=== PATIENT | male | born 1965 | race Caucasian/White ===

== ENCOUNTER 2020-12-27 15:03 | Emergency (ER) | payer OTHER, SELFPAY ==
[2020-12-27 15:03] VITALS: BP 130/115; PULSE 96; RESP 16; TEMP 36.8; O2SAT 99; BMI 51.5
--- NOTE | 2020-12-27 15:16 | EKG12_ITS ---
Test Reason : Blood Pressure : / mmHG Vent. Rate : 084 BPM Atrial Rate : 084 BPM P-R Int : 162 ms QRS Dur : 100 ms QT Int : 386 ms P-R-T Axes : 004 -09 047 degrees QTc Int : 456 ms Normal sinus rhythm Normal ECG Confirmed by MARIO DIANA, VICKI ([id number]), news copy editor SHANE MARTINEZ ([id number]) on 12/29/2020 10:31:15 AM Referred By: RU Confirmed By:VICKI MARTIN MD
--- NOTE | 2020-12-27 15:18 | EDS_ITS ---
HPI History of Present Illness Chief Complaint: General Illness Detail of Chief Complaint: Multiple complaints Informant: patient Narrative Narrative: Patient states that about a month ago started having a white film on his tongue. Patient states that he was using nystatin swish and swallow and then [facility] and symptoms have not improved. Patient states that everything tastes bad and now he has a brownish film on his tongue. Patient also states that he is got some fullness that he is noticed at the base of his neck. He is able to swallow food without difficulty and has had normal appetite. He said no vomiting. Yesterday he had some tightness in his upper abdomen but now that is resolved. He is having normal bowel movements. He denies significant chest pain or shortness of breath. He denies recent illness. He has not had his Covid vaccine. He denies exposures to Covid. Prior similar symptoms: No PFSH PFSH Medical History no medical history Home Medications buspirone 10 mg PO DAILY 12/27/20 [History Last Taken Unknown] lithium carbonate 900 mg PO DAILY 12/27/20 [History Last Taken Unknown] Allergy/AdvReac Type Severity Reaction Status Date / Time No Known Allergies Allergy Verified 12/27/20 15:06 Surgical History (Updated 12/27/20 @ 15:14 by Zahida Childress) History of resection of rib Social History Smoking Status: Current every day smoker tobacco type: cigarettes ROS ROS ED Constitutional Constitutional ED: Reports systems reviewed and no addt'l complaints, except as documented; Denies body ache(s), change in weight or chills Eyes Eyes: Denies acute decrease in peripheral vision, change in vision, double vision or loss of vision ENT ENT ED: Reports none and other Details: White film on tongue and brown film on tongue, dysgeusia ; Denies ear pain, lip swelling, loss taste/smell, neck pain, otalgia or sore throat Cardiovascular Cardiovascular: Reports none; Denies abdominal pain, chest pain with activity, leg edema, lightheadedness, palpitations, rapid heart rate or syncope Respiratory/Chest Respiratory/Chest: Reports none; Denies change in mental status, dry cough, dyspnea, hemoptysis, shortness of breath at rest or shortness of breath with exertion Gastrointestinal Gastrointestinal: Reports none; Denies abdominal pain, change in stool character, diarrhea, hematemesis, hematochezia, melena, rectal bleeding or vomi ting Genitourinary Genitourinary ED: Reports none; Denies abdominal discomfort, anuria, dysuria, genital pain or polyuria Musculoskeletal Musculoskeletal: Reports none; Denies arthralgias, back pain, difficulty walking, extremity pain, muscle weakness or myalgias Integumentary Reports none; Denies abscess or rash Neurologic Neurologic: Reports none; Denies abnormal gait, confusion, focal weakness, frequent falls, headache(s), loss of vision, numbness, paresthesias, radicular pain, vertigo or weakness Psychiatric Psychiatric: Reports systems reviewed and no addt'l complaints, except as documented and none; Denies behavioral changes, confusion, difficulty concentrating, hallucinations, suicidal ideation, tactile hallucinations or v isual hallucinations Endocrine Endocrinology: Denies none, cold intolerance, excessive sweating, fatigue or heat intolerance Hematologic/Lymphatic Hematologic/Lymphatic: Reports none; Denies anemia, easy bleeding or easy bruising Allergic/Immunologic Allergic/Immunologic ED: Denies as per HPI, none, lip swelling, mouth swelling, throat swelling, tongue swelling or hives EXAM Physical Exam Const Vital Signs: 12/27/20 15:03 12/27/20 15:13 Temperature 98.2 F Temperature Source Temporal Pulse Rate 96 Respiratory Rate 16 Respiratory Effort Normal Respiratory Pattern Normal Blood Pressure 130/115 H Blood Pressure Mean 120 Pulse Ox 99 Oxygen Delivery Method Room Air Positive well nourished and well developed General Appearance ED: well developed and NAD HEENT Reports TM's clear and moist mucous membranes HEENT Narrative: Patient does have a brownish discoloration coating the tongue and papilla. normocephalic and atraumatic; Negative for trauma or tenderness Tympanic Membrane ED: Yes TM's clear Eyes PERRL and EOMs intact bilaterally General Eye ED: Negative for pale conjunctiva or scleral icterus Neck no lymphadenopathy, supple and no JVD General: Negative for tenderness Chest Wall inspection of chest normal and palpation of chest normal Chest: Negative for tenderness Resp normal respiratory effort and clear to auscultation bilaterally Effort and Inspection: Negative for respiratory distress or pain with movement Auscultation: Negative for rhonchi, wheezes or diminished lung sounds Cardio regular rate, regular rhythm, S1 normal heart sound, S2 normal heart sound and no murmurs Peripheral Pulses: pulses 2+ throughout GI normal to inspection, nondistended, normoactive bowel sounds, soft to palpation, non-tender, non-distended and no masses Back/Spine no CVA tenderness and no thoracic nor lumbar tenderness Extremity normal to inspection General Extremety ED: Negative for edema General Extremity: Negative for edema Neuro oriented x3, CN's II-XII intact bilaterally, no sensory deficits noted and gait normal Sensorium / Orientation: awake, alert, oriented to person, oriented to place and oriented to time Motor Exam: strength 5/5 throughout and strength abnormal Psych mental status grossly normal Skin no rashes or lesions noted and no wounds MDM MDM MDM Narrative Medical decision making narrative: Lab work-up was unremarkable. Etiology of feliciano antoine discoloration and dysgeusia may be related to smoking. He is advised to discontinue smoking. He is already been on Diflucan. I will refer patient to ENT for follow-up. Lab Data Attestation: I reviewed the patient's lab results. Labs: Laboratory Results - last 24 hr 12/27/20 12/27/20 12/27/20 15:27 15:27 15:27 WBC 9.0 RBC 5.03 Hgb 15.2 Hct 47.1 MCV 93.6 MCH 30.2 MCHC 32.3 RDW Std Deviation 41.6 RDW Coeff of Beth 12.0 Plt Count 335 MPV 8.8 Immature Gran % (Auto) 0.400 Neut % (Auto) 64.8 Lymph % (Auto) 22.0 [place] % (Auto) 8.0 Eos % (Auto) 3.7 Baso % (Auto) 1.1 H Absolute Neuts (auto) 5.8 Absolute Lymphs (auto) 1.98 Nucleated RBC % 0 Sodium 135 L Potassium 4.2 Chloride 104 Carbon Dioxide 28.0 Anion Gap 3 L BUN 13 Creatinine 1.08 Estim Creat Clear Calc 73.10 Est GFR (MDRD) Af Amer 92 Est GFR (MDRD) Non-Af 76 BUN/Creatinine Ratio 12.0 Glucose 86 Calcium 9.3 Troponin I High Sens 5 [place] 1.00 Radiography Diagnostic Testing: Clinical Impression(s) from Imaging Studies Chest X-Ray 12/27/20 15:27 IMPRESSION: Normal x-ray examination of the chest. Electronically Signed: Lewis Ferraro MD at 15:55 EDT Tel , Service support , One view chest x-ray obtained interpreted by myself as no acute disease process. Radiology in agreement. EKG Initial EKG: Attestation: I personally reviewed and interpreted this EKG as follows: Comments: Sinus rhythm with a ventricular rate of 84 bpm with no acute ST segment changes Discharge Plan Triage Chief Complaint: General Illness ED Provider: Sanjiv Kumar Dx/Rx/DC Orders Clinical Impression: Dysgeusia, Brown hairy tongue Instructions: Smell and Taste Disorders Prescriptions: No Action lithium carbonate 300 mg Capsule 900 mg PO DAILY RF: 0 buspirone 10 mg Tablet 10 mg PO DAILY RF: 0 Primary Care Provider: [facility] Referrals: Jorge Hung MD [STAFF PHYSICIAN] - 3-5 Days [facility] [Primary Care Provider] - Disposition Disposition: Home, Self Care
--- NOTE | 2020-12-27 15:27 | RAD_ITS ---
STUDY: X-RAY CHEST REASON FOR EXAM: Male, 55 years old. Chest pain TECHNIQUE: Single frontal view of the chest. COMPARISON: None. FINDINGS: The lungs are clear and expanded. There is no demonstrated pleural abnormality. Normal size heart. Normal mediastinum and kala. Normal visualized pulmonary arteries. Normal visualized aortic arch and descending thoracic aorta. Normal visualized thoracic spine. Normal visualized ribs, clavicles, and shoulders. There is no demonstrated abnormality of the visualized soft tissue structures of the upper abdomen. RAD/Chest 1 View (Portable) IMPRESSION: Normal x-ray examination of the chest. Electronically Signed: Lewis Ferraro MD at 15:55 EDT Tel , Service support ,
[2020-12-27 15:36] LABS: Absolute Lymphocyte Count 1.98 X10^3/uL (0.83-4.51); Absolute Neutrophil Count 5.8 X10^3/uL (2.0-7.7); Basophil% 1.1 % (0-1); Eosinophil# 0.33 X10^3/uL; Eosinophils% 3.7 % (0-5); Hematocrit 47.1 % (40-54); Hemoglobin 15.2 g/dL (13.0-16.5); Lymphocyte # 1.98 X10^3/ul (0.83-4.51); Mean Corp Hgb Conc 32.3 g/dL (32-36); Mean Corpuscular Hgb 30.2 pg (27.0-32.0); Mean Corpuscular Volume 93.6 fL (80-94); Mean Platelet Vol. 8.8 fl (6.2-12.0); Monocyte# 0.72 X10^3/uL; NRBC Flagged by Analyzer 0 % (0-5); Neutrophil # 5.84 X10^3/uL (2.7-7.7); Neutrophil % 64.8 % (47-70); Platelet Count 335 K/mm3 (150-450); RBC Distribution Width SD 41.6 fl (35.1-43.9); Red Blood Count 5.03 M/mm3 (4.6-6.2)
[2020-12-27 15:53] LABS: Anion Gap 3 (5-15); BUN 13 mg/dL (7-18); Calcium,Total 9.3 mg/dL (8.5-10.1); Chloride 104 mmol/L (98-107); Creatinine, Serum 1.08 mg/dL (0.70-1.30); EST Glomerular Filtration Rate 76 mL/min (>60); Est Glom Filt Rate - Afr Amer 92 mL/min (>60); Glucose 86 mg/dL (74-106); Potassium 4.2 mmol/L (3.5-5.1); Sodium Level 135 mmol/L (136-145); Troponin-I HS 5 pg/mL (3.0-78.0)
[2020-12-27 17:02] VITALS: BP 168/93; PULSE 87; RESP 18; O2SAT 97
== END 2020-12-27 17:03 | disposition home or self-care (01) ==
PROVIDERS: Emergency Provider Emergency Medicine
DX: R43.2 Parageusia (principal); F17.210 Nicotine dependence, cigarettes, uncomplicated
CPT/HCPCS: 71045; 80048; 80178; 84484; 85025; 87426; 93005; 99283; A4216

== ENCOUNTER 2022-11-22 03:31 | Emergency (ER) | payer MEDICAID, SELFPAY ==
[2022-11-22 03:32] VITALS: BP 162/96; PULSE 89; RESP 18; TEMP 36.3; O2SAT 100; BMI 43.1
[2022-11-22 03:34] VITALS: BP 162/96; PULSE 89; RESP 18; TEMP 36.3; O2SAT 100
--- NOTE | 2022-11-22 03:35 | EX.ED.DYSGE1 ---
HPI History of Present Illness Chief Complaint: Lower Extremity Injury PFSH PFS Home Medications buspirone 10 mg tablet 10 mg PO BID 12/27/20 [History Last Taken Unknown] lithium carbonate 300 mg capsule 1,200 mg PO DAILY 12/27/20 [History Last Taken Unknown] omeprazole magnesium 20 mg tablet,delayed release (Prilosec OTC) 20 mg PO DAILY 11/22/22 [History Last Taken Unknown] Allergy/AdvReac Type Severity Reaction Status Date / Time No Known Allergies Allergy Verified 11/22/22 03:32 Surgical History (Updated 12/27/20 @ 15:14 by Zahida Childress) History of resection of rib Social History Smoking Status: Current every day smoker tobacco type: cigarettes EXAM Physical Exam Const Vital Signs: 11/22/22 03:32 11/22/22 03:34 Temperature 97.3 F L 97.3 F L Temperature Source Temporal Temporal Pulse Rate 89 89 Respiratory Rate 18 18 Blood Pressure 162/96 H 162/96 H Blood Pressure Mean 118 118 Pulse Ox 100 100 Oxygen Delivery Method Room Air Room Air MDM MDM MDM Narrative Medical decision making narrative: HISTORY OF PRESENT ILLNESS: 57-year-old male here with thigh pain. He states he has no injuries. States he has thigh pain that feels like it is deep in the bone. He further states pain started yesterday. He states he may have tweaked his right thigh while walking yesterday. Denies any trauma. Denies any MVC's or falls from great heights. Patient denies active cancer, being bedridden for greater than 3 days, denies unilateral leg swelling, denies any varicose veins, denies any calf tenderness, denies tenderness along deep venous system. Denies major surgery within 12 weeks, recent paralysis, previous DVT. REVIEW OF SYSTEMS: Pertinent positives: Thigh pain Pertinent negatives: Numbness, weakness, coolness to touch, fever, unilateral leg swelling, chest pain or shortness of breath PHYSICAL EXAM: Nursing triage notes reviewed, Vital signs reviewed Constitutional: please see mdm Lungs: Clear to auscultation, No wheezing or rales. No increased work of breathing, no conversational dyspnea, no accessory muscle use, no nasal flaring. No respiratory distress noted Heart: Regular rate and rhythm, No murmurs, No rubs and No gallops, 2+ distal pulses (radial, femoral, posterior tibial) in all extremities Abdomen: Soft, there is no tenderness, rigidity, rebound or guarding, no obvious peritoneal signs, no palpable pulsatile abdominal masses, no auscultated abdominal bruit Extremities: No edema no signs of trauma, compartments are soft, intact ankle flexion extension, intact knee flexion sensory, intact hip flexion extension internal/external rotation Neuro: Intact sensation L1-S1 dermatomal distributions. Intact 5/5 strength in hip flexion (T12-L3). Knee extension (L2-L4). Ankle dorsiflexion (L4-L5). Ankle plantar flexion (S1). Great toe extension (L5). 2+ patellar and Achilles DTRs. Skin: No rash or lesions noted MEDICAL DECISION MAKING: Chief Complaint: Thigh pain External records reviewed: Advanced imaging of the involved extremity Factors affecting care: Bipolar disorder Social determinants of health: Current smoker, history mental health MDM Narrative: Was hemodynamically stable, afebrile, nontoxic-appearing I considered the following differential diagnosis: Muscle strain, fracture dislocation, arterial occlusion, DVT, compartment syndrome, necrotizing fasciitis There is no history of physical exam findings to suggest DVT, arterial occlusion, apartment syndrome. There are no signs of infection on exam. No crepitus or bullae or pain on proportion to exam there is no significant trauma to suggest femoral bone fracture. There is no signs of trauma on exam. Patient likely suffered a quadriceps muscle strain. Encouraged Tylenol, ibuprofen and close PCP follow-up. The patient and/or family, caregivers express understanding. The patient and/or family, caregivers agrees with the plan. Shared decision making: I will have a discussion with the patient and or visitors regarding risk/benefits of further testing or admission. They will be made aware of of the risk/benefits inherent in this decision they will be given the opportunity to voice understanding. Total critical care time today provided was at least 0 minutes. This excludes separately billable procedures. Critical care time (if documented) is secondary to the patient having high probability of clinically significant/life threatening deterioration in the patient's condition which required my urgent intervention. Impression: 1. Right quadriceps muscle strain Dispo: Discharge Discharge Plan Triage Chief Complaint: Lower Extremity Injury ED Provider: Zbigniew García Dx/Rx/DC Orders Instructions: Quad Stretch Prescriptions: No Action lithium carbonate 300 mg Capsule 1,200 mg PO DAILY buspirone 10 mg Tablet 10 mg PO BID omeprazole magnesium [Prilosec OTC] 20 mg tablet,delayed release (DR/EC) 20 mg PO DAILY Primary Care Provider: [facility] Referrals[place] [facility] [Primary [facility] [place]] - Activity Restrictions/Additional Instructions: Thank you for trusting us with your care today! Please take Tylenol (2 pills, 650 mg), ibuprofen (2 pills, 400 mg) every 6 hours as needed for pain and fever control. Please return to the emergency department if your symptoms change or worsen. Typically you develop chest pain or shortness of breath. If develop worsening pain, if your limb turns blue or is cool to touch. If you lose ability to move your involved extremity or you lose sensation in your involved extremity Please follow with your primary care physician for further outpatient evaluation and management. Disposition Disposition: Home, Self Care
== END 2022-11-22 04:10 | disposition home or self-care (01) ==
LOC: ED 04:10
PROVIDERS: Emergency Provider Emergency Medicine; Visit Provider Emergency Medicine
DX: S76.111A Strain of right quadriceps muscle, fascia and tendon, initial encounter (principal); F31.9 Bipolar disorder, unspecified; F17.210 Nicotine dependence, cigarettes, uncomplicated; X58.XXXA Exposure to other specified factors, initial encounter
CPT/HCPCS: 99282

== ENCOUNTER 2023-01-17 08:20 | Emergency (ER) | payer OTHER, SELFPAY ==
[2023-01-17 08:21] VITALS: BP 181/129; PULSE 120; RESP 16; TEMP 36.2; O2SAT 100; BMI 41.7
--- NOTE | 2023-01-17 08:34 | EX.ED.VIS.UR ---
HPI HPI - URI History of Present Illness Chief Complaint: Ear Problem Informant: patient Onset/Context/Timing Onset: Days (5) Context: Gradual Onset Timing: Continuous Quality: Pressure Location: Right ear Worsened by: - (Nothing) Relieved by: - (Nothing) Associated Symptoms Associated Symptoms: Negative for Nasal Congestion, Headache, Sinus Pressure, Myalgias, Nausea, Vomiting, Diarrhea, Shortness of Breath, Chest Pain, Nonproductive cough, Hemoptysis or Productive Cough Narrative Narrative: Patient presents with right ear pain that has been getting worse over the past 5 days. Patient describes it as a pressure. Patient states that it is over the right ear and radiates into the right side of his neck. Patient states nothing makes it worse and nothing makes it better. Patient denies any sinus pressure or headaches. Patient denies any nausea or vomiting. Patient does admit to some tinnitus. Patient denies any fevers or chills. Patient admits to some decreased hearing from the right ear. ROS ROS ED Constitutional Constitutional ED: Denies chills or fever(s) Eyes Eyes: Reports blurry vision; Denies change in vision ENT ENT ED: Reports ear pain right; Denies rhinorrhea or sore throat Cardiovascular Cardiovascular: Denies chest pain or palpitations Respiratory/Chest Respiratory/Chest: Denies cough or dyspnea Gastrointestinal Gastrointestinal: Denies nausea or vomiting Genitourinary Genitourinary ED: Reports other Details: Dark urine ; Denies dysuria or hematuria Musculoskeletal Musculoskeletal: Denies back pain or neck pain Integumentary Denies abscess or rash Neurologic Neurologic: Denies headache(s) or weakness Allergic/Immunologic Allergic/Immunologic ED: Denies mouth swelling or urticaria [facility] Medical History (Updated 01/17/23 @ 10:[address] Jorge Barillas, ) Bipolar disorder GERD (gastroesophageal reflux disease) Home Medications buspirone 10 mg tablet 10 mg PO BID 12/27/20 [History Last Taken Unknown] lithium carbonate 300 mg capsule 1,200 mg PO DAILY 12/27/20 [History Last Taken Unknown] omeprazole magnesium 20 mg tablet,delayed release (Prilosec OTC) 20 mg PO DAILY 11/22/22 [History Last Taken Unknown] amoxicillin 875 mg-potassium clavulanate 125 mg tablet 875 mg (0.875 x 875-125 mg) PO Q12H #20 TABLETS 01/17/23 [Rx Last Taken Unknown] Allergy/AdvReac Type Severity Reaction Status Date / Time No Known Allergies Allergy Verified 01/17/23 08:22 Surgical History History of resection of rib Social History (Updated 01/17/23 @ 08:[address] Jorge Barillas DO) Smoking Status: Current every day smoker tobacco type: cigarettes substance use type: marijuana EXAM Physical Exam Const Vital Signs: 01/17/23 08:21 01/17/23 10:37 Temperature 97.2 F L 97.3 F L Temperature Source Temporal Pulse Rate 120 H 64 Respiratory Rate 16 14 Blood Pressure 181/129 H 142/76 H Blood Pressure Mean 146 98 Pulse Ox 100 99 Oxygen Delivery Method Room Air Positive well nourished, well developed and obese General Appearance ED: well developed and NAD Nutritional Appearance: obese HEENT Reports moist mucous membranes HEENT Narrative: There is edema and mild tenderness over the right parotid gland area. There is no fluctuance. There is no erythema. Tympanic membranes are clear bilateral. External auditory canals are clear. There is no tenderness over the mastoid process. normocephalic and atraumatic Neck no lymphadenopathy, supple, no meningeal signs and no JVD General: Negative for anterior neck swelling or lymphadenopathy Resp normal respiratory effort and clear to auscultation bilaterally Cardio Rate: regular rate Rhythm: regular rhythm GI non-tender and non-distended Palpation: soft Neuro oriented x3, CN's II-XII intact bilaterally and no sensory deficits noted Sensorium / Orientation: alert Motor Exam: strength 5/5 throughout Psych mental status grossly normal MDM MDM MDM Narrative Medical decision making narrative: Differential diagnosis includes parotid gland abscess, mass, infection, and stone. CBC will be obtained to assess for leukocytosis and anemia. Basic metabolic profile will be obtained to assess for electrolyte abnormality and renal function. Urinalysis will be obtained to assess for urinary tract infection and hematuria. CT scan of the soft tissue neck will be obtained to assess for parotid gland mass versus abscess. Lab Data Attestation: I reviewed the patient's lab results. Lab results narrative: CBC was reviewed. There is a mild leukocytosis of 12.7. Hemoglobin was 18.1 and hematocrit was 57.4. Platelets were normal. Basic metabolic profile was reviewed. BUN was 22 and creatinine was 1.37. Urinalysis was reviewed. Specific gravity is 1.030. There is urine ketones of 50. Occult blood was 10. There are no red blood cells seen. There is no evidence of urinary tract infection. Labs: Laboratory Results - last 24 hr 01/17/23 09:15 WBC 12.7 H RBC 6.05 Hgb 18.1 H* Hct 57.4 H MCV 94.9 H MCH 29.9 MCHC 31.5 L RDW Std Deviation 45.4 H RDW Coeff of Beth 12.8 Plt Count 337 MPV 9.3 Immature Gran % (Auto) 0.700 Neut % (Auto) 75.7 H Lymph % (Auto) 14.2 L [place] % (Auto) 6.5 Eos % (Auto) 2.0 Baso % (Auto) 0.9 Absolute Neuts (auto) 9.6 H Absolute Lymphs (auto) 1.81 Nucleated RBC % 0 Differential Comment SCANNED Diff Path Review Reviewed Sodium 132 L Potassium 4.0 Chloride 99 Carbon Dioxide 26.0 Anion Gap 7 BUN 22 H Creatinine 1.37 H Estim Creat Clear Calc 56.29 Est GFR (MDRD) Af Amer 69 Est GFR (MDRD) Non-Af 57 L BUN/Creatinine Ratio 16.1 Glucose 90 Calcium 10.1 Urine Color Yellow Urine Clarity Clear Urine pH 5.0 Ur Specific [place] 1.030 Urine Protein 30 H Urine Glucose (UA) Normal Urine Ketones 50 H Urine Occult Blood 10 H Urine Nitrite Negative Urine Bilirubin 1 H Urine Urobilinogen 1 H Ur Leukocyte Esterase 25 H Urine RBC 0 SEEN Urine WBC 0-5 SEEN Ur Squamous Epith Cells 0 SEEN Urine Bacteria 0 SEEN Urine Mucus 0 SEEN Radiography Diagnostic Testing: Clinical Impression(s) from Imaging Studies Soft Tissue Neck CT 01/17/23 09:25 IMPRESSION: 1. Enlarged salivary glands without evidence of edema, mass or abscess. 2. Chronic right maxillary sinusitis. 3. 12 mm left thyroid nodule. Follow-up thyroid ultrasound recommended. Electronically Signed: Wei Hart MD at 9:51 EST , CT scan of the soft tissue neck was obtained. There are enlarged parotid glands but there is no mass or abscess. There is no salivary duct stone. This was interpreted by the radiologist and was also independently reviewed by myself. Treatment and Re-Evaluation Narrative: Patient was given IV fluids. Patient was advised of his findings. Patient was given a dose of Augmentin here. Patient was given a prescription for Augmentin. Patient was instructed to follow-up with ENT in 5 to 7 days. Patient was instructed return if worse in any way. Patient understood and was agreeable with the plan. All questions were answered. Discharge Plan Triage Chief Complaint: Ear Problem ED Provider: Jorge Barillas Dx/Rx/DC Orders Clinical Impression: Sialoadenitis, Morbid obesity with BMI of 40.0-44.9, adult Instructions: ED Salivary Gland Swelling ... Prescriptions: New amoxicillin-pot clavulanate [amoxicillin-pot clavulanate] 875-125 mg tablet 875 mg PO Q12H Qty: 20 0RF No Action lithium carbonate 300 mg Capsule 1,200 mg PO DAILY buspirone 10 mg Tablet 10 mg PO BID omeprazole magnesium [Prilosec OTC] 20 mg tablet,delayed release (DR/EC) 20 mg PO DAILY Primary Care Provider: [facility] Referrals: Prabhjot Sánchez MD [Med Staff - Active Staff] - 5-7 Days [facility] [Primary Care Provider] - 5-7 Days Disposition Disposition: Home, Self Care Discharge Date/Time: 01/17/23 10:38
[2023-01-17 09:24] LABS: Bacteria 0 SEEN /hpf (None Seen); Mucous, Urine 0 SEEN /hpf (<or=2+); Red Blood Cells-Urine 0 SEEN /hpf (0-5); Squamous Epithelial Cells - UA 0 SEEN /hpf (0-5)
--- NOTE | 2023-01-17 09:25 | CT_ITS ---
EXAM: CT NECK WITHOUT AND WITH INTRAVENOUS CONTRAST CLINICAL INDICATION: Parotid gland swelling -- Rule out abscess versus mass versus stone TECHNIQUE: Helically acquired images were obtained of the neck without and with intravenous contrast. This CT exam was performed using one or more of the following dose reduction techniques: automated exposure control, adjustment of the mA and/or kV according to patient size, and/or use of iterative reconstruction technique. CONTRAST: IV 75mL [id number] COMPARISON: No relevant prior studies available. FINDINGS: NASOPHARYNX: Normal. SUPRAHYOID NECK: Normal. Oropharynx, oral cavity, parapharyngeal space and retropharyngeal space are unremarkable. INFRAHYOID NECK: Normal. The larynx, hypopharynx and supraglottis are unremarkable. SUBMANDIBULAR/PAROTID GLANDS: Both parotid and submandibular glands appear prominent in size without discrete edema, mass or abscess. THYROID: Left thyroid lobe is mildly enlarged. Several small left thyroid nodules noted largest one measuring 12 mm. SINUSES: Opacified right maxillary sinus consistent with chronic sinusitis. BONES/JOINTS: There is been surgical resection of the anterior portion of the left first rib. SOFT TISSUES: No evidence of salivary duct stone. VASCULATURE: No acute findings. LYMPH NODES: Normal. No lymphadenopathy. LUNG APICES: Unremarkable as visualized. CT/Soft Tissue Neck W/WO Contrast IMPRESSION: 1. Enlarged salivary glands without evidence of edema, mass or abscess. 2. Chronic right maxillary sinusitis. 3. 12 mm left thyroid nodule. Follow-up thyroid ultrasound recommended. Electronically Signed: Wei Hart MD at 9:51 EST ,
[2023-01-17 09:26] LABS: Absolute Lymphocyte Count 1.81 X10^3/uL (0.83-4.51); Absolute Neutrophil Count 9.6 X10^3/uL (2.0-7.7); Basophil# 0.12 X10^3/uL; Basophil% 0.9 % (0-1); Eosinophil# 0.26 X10^3/uL; Lymphocyte # 1.81 X10^3/ul (0.83-4.51); Lymphocyte % 14.2 % (19-41); Mean Corp Hgb Conc 31.5 g/dL (32-36); Mean Corpuscular Hgb 29.9 pg (27.0-32.0); Mean Corpuscular Volume 94.9 fL (80-94); Mean Platelet Vol. 9.3 fl (6.2-12.0); Monocyte# 0.83 X10^3/uL; Monocyte% 6.5 % (0-10); NRBC Flagged by Analyzer 0 % (0-5); Neutrophil # 9.61 X10^3/uL (2.7-7.7); Neutrophil % 75.7 % (47-70); Platelet Count 337 K/mm3 (150-450); RBC Distribution Width CV 12.8 % (11.6-14.6); RBC Distribution Width SD 45.4 fl (35.1-43.9); Red Blood Count 6.05 M/mm3 (4.6-6.2); White Blood Count 12.7 K/mm3 (4.4-11.0)
[2023-01-17 09:36] LABS: Hematocrit 57.4 % (40-54)
[2023-01-17 09:38] LABS: Differential Indicated SCAN CRITERIA MET; Hemoglobin 18.1 g/dL (13.0-16.5)
[2023-01-17 09:41] LABS: Anion Gap 7 (5-15); BUN 22 mg/dL (7-18); BUN/Creat Ratio 16.1 RATIO (10-20); Calcium,Total 10.1 mg/dL (8.5-10.1); Chloride 99 mmol/L (98-107); Creatinine, Serum 1.37 mg/dL (0.70-1.30); EST Glomerular Filtration Rate 57 mL/min (>60); Est Glom Filt Rate - Afr Amer 69 mL/min (>60); Estimated Creatinine Clearance 56.29 ml/min; Glucose 90 mg/dL (74-106); Sodium Level 132 mmol/L (136-145)
[2023-01-17 09:42] LABS: Color, Urine Yellow (Yellow); Glucose, Dipstick Normal (Normal); Ketone-Dipstick 50 mg/dl (Negative); Leukocyte Esterase-Dipstick 25 /ul (Negative); Nitrite-Dipstick Negative (Negative); Occult Blood-Urine 10 /ul (Negative); Protein-Dipstick 30 mg/dl (Negative); Urine Bilirubin Dipstick 1 mg/dL (Negative); Urine Clarity Clear (Clear); Urine Urobilinogen 1 mg/dl (Normal)
[2023-01-17 09:48] LABS: White Blood Cells 0-5 SEEN /hpf (0-5)
[2023-01-17] MEDS: 0.9% Normal Saline (1000mL) 1,000 ML 1000 ML IV (09:53)
[2023-01-17 10:09] LABS: Differential Comment SCANNED
[2023-01-17] MEDS: Amox/Clavulanate 875 MG Tablet PO (10:34)
[2023-01-17 10:37] VITALS: BP 142/76; PULSE 64; RESP 14; TEMP 36.3; O2SAT 99
[2023-01-17 14:08] LABS: Pathologist Review Reviewed
== END 2023-01-17 10:38 | disposition home or self-care (01) ==
PROVIDERS: Emergency Provider Emergency Medicine; Visit Provider Emergency Medicine
DX: K11.20 Sialoadenitis, unspecified (principal); E66.01 Morbid (severe) obesity due to excess calories; Z68.41 Body mass index [BMI] 40.0-44.9, adult; F17.210 Nicotine dependence, cigarettes, uncomplicated; H93.11 Tinnitus, right ear; H91.91 Unspecified hearing loss, right ear
CPT/HCPCS: 70492; 80048; 81001; 85025; 96360; 99283; J7030; Q9967; A4216

== ENCOUNTER 2023-05-13 08:53 | Day surgery (SDC) | payer OTHER, SELFPAY ==
[2023-05-13] MEDS: Lactated Ringers 1,000 ML 15 ML IV (09:33)
[2023-05-13 09:37] VITALS: BP 151/94; PULSE 77; RESP 16; TEMP 36.8; O2SAT 98; BMI 41.0
--- NOTE | 2023-05-13 09:53 | PCM.HP.BLA ---
History and Physical Date of Admission: 05/13/23 Intake Vital Signs 01/18/2308:21 03/28/2407:37 Height 5 ft 7 in 5 ft 7 in Weight: 267 lb BMI 41.8 BP 152/94 H Blood Pressure Location Rt brachial Position Sitting Respiration 16 Intake Visit Reasons: EGD AND COLONSCOPY SCREENING Chief Complaint: egd/c-scope Md Physician Dermatologist Required: No Is patient in pain?: No Allergies No Known Allergies Allergy (Verified 03/28/23 08:38) Medications buspirone 10 mg tablet 10 mg PO BID 12/27/20 [History Confirmed 03/28/23] lithium carbonate 300 mg capsule 1,200 mg PO DAILY 12/27/20 [History Confirmed 03/28/23] psyllium husk 0.4 gram capsule (Reguloid (psyllium husk)) 0.4 g PO DAILY 03/28/23 [History Confirmed 03/28/23] trazodone 100 mg tablet 100 mg PO DAILY 03/28/23 [History Confirmed 03/28/23] PFSH Medical History Bipolar disorder GERD (gastroesophageal reflux disease) Surgical History History of resection of rib Family History (Updated 03/28/23 @ 08:37 by Zaira Martinez) Mother CVA (cerebral vascular accident) Social History Smoking Status: Current every day smoker tobacco type: cigarettes substance use type: marijuana HPI HPI HPI: patient is a 57-year-old male here for colonoscopy and EGD. Patient reports he has been having burning pain in the left upper quadrant and reflux. He has been on a PPI. He is also been having dysphagia. He has had several balloon dilations. The patient has also been having black tarry stools and bright blood in his stools. He has 5 polyps removed in 2019 and is overdue for colonoscopy. ROS General General: Yes weight change and fatigue; No appetite, colon cancer, breast cancer or weakness HEENT HEENT: Yes difficulty swallowing and swollen glands; No eye injury, eye surgery or hoarseness Endo Endocrine: No thyroid disease, diabetes mellitus, thyroid cancer, Hair loss, heat intolerance or cold intolerance Skin Skin: No rash or changing moles Breast Breast: No left breast lump, right breast lump, nipple discharge, breast pain, abnormal mammogram, abnormal US or breast enlargement Musc Musculoskeletal: No back problems, arthritis, rheumatoid arthritis, gout or joint pain Cardio Cardiovascular: No murmur, pacemaker, heart disease, atrial fibrillation, high blood pressure, heart attack, heart stent, palpitations, shortness of breat with exertion or chest pain Psych Psychiatric: No depression, anxiety or hearing voices Resp Respiratory: Yes shortness of breath, Yes sleep apnea, No cough, No COPD, No asthma, No emphysema and No wheezing Gastro Gastrointestinal: Yes abdominal pain, Yes nausea or vomiting, Yes diarrhea, Yes constipation, Yes blood in stool, Yes acid reflux, Yes hemorrhoids, No ulcers, No gallbladder problem and Yes black,tarry stools Brandin Hematologic: No blood thinners, No blood disorders, No bleeding, No anemia and Yes blood clots Neuro Neurologic: No system reviewed and no additional complaints, except as documented, No as per HPI, No abnormal gait, No abnormal hearing, No abnormal movements, No abnormal speech, No behavioral changes, No burning sensations, No confusion, No convulsions, No disequilibrium, No dizziness, No localized weakness, No frequent falls, No headache(s), No lack of coordination, No loss of vision, No memory loss, Yes numbness, No other visual disturbances, No radicular pain, No restless legs, No sensory deficit, No syncope, Yes tingling, No tremor(s), No weakness and No other Exam Const General: cooperative Orientation: alert and oriented x3 HENMT Head: normal to inspection Neck Neck: normal visual inspection and full ROM Chest Chest palpation & inspection: normal inspection of the chest Resp Effort & Inspection: normal respiratory effort Auscultation: clear to auscultation bilaterally Cardio Rate: regular rate Rhythm: regular rhythm GI Inspection: non-distended Palpation: soft and nontender Skin General: no rashes or lesions noted Neuro General: patient alert and patient oriented x3 Extrem General: full ROM Psych Appearance: grossly normal Mental Status: mental status grossly normal Assessment and Plan Assessment and Plan (1) GERD (gastroesophageal reflux disease): Status: Acute Qualifiers: Esophagitis presence: esophagitis presence not specified Qualified Code(s): K21.9 - Gastro-esophageal reflux disease without esophagitis Plan: The patient has been having left upper quadrant pain. He is already on a PPI. He reports that he has been having dysphagia. He has had balloon dilations in the past. I recommended EGD with balloon dilation. He says that during his last EGD he heard that he has a hiatal hernia but I did not see any record of that. (2) Black tarry stools: Status: Acute Plan: I explained endoscopy in detail to the patient. I explained the risks including but not limited to stroke or heart attack with anesthesia, perforation of the GI tract, bleeding, infection. I explained that any of these could necessitate further emergency surgery. The patient understands and all questions were answered sufficiently. The patient wishes to proceed with procedure. I will plan for colonoscopy at the same time as the patient has been seeing blood in his stool. Lambert Tyler MD Pager: [facility] [address] [place] [address], [address] [place] [address] Office: I have examined the patient and the H&P has been reviewed. There are no clinical changes since date of exam.
--- NOTE | 2023-05-13 10:15 | FORE_PTH ---
PATIENT: IZABEL GARCIA Jr. LOC: EN U#:[id number] AGE/SX: 57/M ROOM: RE05/13/[address]: Dr. 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 Aguilar who concurs with the above diagnosis. IDC:SJ MICROSCOPIC DESCRIPTION Slides are reviewed. GROSS DESCRIPTION Received fresh is one container labeled with the patient's name and designated colon worm. The specimen consists of a filamentous light-daniel white worm measuring 7.0mm in length and less then 0.1mm in diameter. The specimen is fixed onto a glass slide and examined under a polarized microscopy. AM/mr 05/13/23 CPT:21585
[2023-05-13 10:40] VITALS: BP 103/77; BP 151/94; PULSE 63; RESP 16; TEMP 36.1; O2SAT 97
--- NOTE | 2023-05-13 10:42 | OP.EGD_ITS ---
Patient Name: Aleks Rizvi Procedure Date: 05/13/2023 9:58 AM Date of : 1965 Age: 57 Procedure: Upper GI endoscopy Indications: Dysphagia, Recent gastrointestinal bleeding Providers: Lambert Tyler MD Referring MD: [facility] Medicines: Monitored Anesthesia Care Patient Profile: This is a 57 year old male. Refer to note in patient chart for documentation of history and physical. Complications: No immediate complications. Estimated blood loss: Minimal. Procedure: Pre-Anesthesia Assessment: - Prior to the procedure, a History and Physical was performed, and patient medications and allergies were reviewed. The patient's tolerance of previous anesthesia was also reviewed. The risks and benefits of the procedure and the sedation options and risks were discussed with the patient. All questions were answered, and informed consent was obtained. Prior Anticoagulants: The patient has taken no anticoagulant or antiplatelet agents. After reviewing the risks and benefits, the patient was deemed in satisfactory condition to undergo the procedure. After obtaining informed consent, the endoscope was passed under direct vision. Throughout the procedure, the patient's blood pressure, pulse, and oxygen saturations were monitored continuously. The gastroscope was introduced through the mouth, and advanced to the third part of duodenum. The upper GI endoscopy was accomplished without difficulty. The patient tolerated the procedure well. Scope In: 10:05:37 AM Scope Out: 10:10:49 AM Total Procedure Duration Time 0 hours 5 minutes 12 seconds Findings: One benign-appearing, intrinsic moderate (circumferential scarring or stenosis; an endoscope may pass) stenosis was found at the gastroesophageal junction. This stenosis measured less than one cm (in length). The stenosis was traversed. A TTS dilator was passed through the scope. Dilation with a 12-13.5-15 mm balloon dilator was performed to 15 mm. The dilation site was examined following endoscope reinsertion and showed moderate improvement in luminal narrowing. Estimated blood loss was minimal. The stomach was normal. The examined duodenum was normal. Impression: - Benign-appearing esophageal stenosis. Dilated. - Normal stomach. - Normal examined duodenum. - No specimens collected. Recommendation: - Discharge patient to home. - Continue present medications. - Soft diet for 2 days. Procedure Code(s): --- Professional --- 28033, Esophagogastroduodenoscopy, flexible, transoral; with transendoscopic balloon dilation of esophagus (less than 30 mm diameter) Diagnosis Code(s): --- Professional --- K22.2, Esophageal obstruction R13.10, Dysphagia, unspecified K92.2, Gastrointestinal hemorrhage, unspecified CPT copyright 2021 [employer]. All rights reserved. The codes documented in this report are preliminary and upon user interface engineer review may be revised to meet current compliance requirements. Lambert Tyler MD 05/13/2023 10:42:04 AM This report has been signed electronically. Number of Addenda: 0 Note Initiated On: 05/13/2023 9:58 AM
--- NOTE | 2023-05-13 10:42 | OP.CCLET_ITS ---
05/13/2023 [facility] Re : Upper GI endoscopy procedure for Aleks Rizvi [facility] This procedure was performed on Saturday, May 13, 2023. My impressions and recommendations are as follows: Impressions : - Benign-appearing esophageal stenosis. Dilated. - Normal stomach. - Normal examined duodenum. - No specimens collected. Recommendations : - Discharge patient to home. - Continue present medications. - Soft diet for 2 days. My findings are described in the full procedure note, which is enclosed. If I can be of further assistance, please feel free to contact me at Doctor phone number(s): , Work: . Sincerely, Lambert Tyler MD 05/13/2023 10:42:04 AM This report has been signed electronically.
[2023-05-13 10:45] VITALS: BP 109/73; BP 151/94; PULSE 59; RESP 16; O2SAT 97
--- NOTE | 2023-05-13 10:45 | OP.COLON_ITS ---
Patient Name: Aleks Rizvi Procedure Date: 05/13/2023 10:11 AM Date of : 1965 Age: 57 Procedure: Colonoscopy Indications: Rectal bleeding Providers: Lambert Tyler MD Referring MD: [facility] Medicines: Propofol per Anesthesia Patient Profile: This is a 57 year old male. Refer to note in patient chart for documentation of history and physical. Last Colonoscopy: more than 10 years ago. Complications: No immediate complications. Estimated blood loss: Minimal. Procedure: Pre-Anesthesia Assessment: - Prior to the procedure, a History and Physical was performed, and patient medications and allergies were reviewed. The patient's tolerance of previous anesthesia was also reviewed. The risks and benefits of the procedure and the sedation options and risks were discussed with the patient. All questions were answered, and informed consent was obtained. Prior Anticoagulants: The patient has taken no anticoagulant or antiplatelet agents. After reviewing the risks and benefits, the patient was deemed in satisfactory condition to undergo the procedure. - Prior to the procedure, a History and Physical was performed, and patient medications and allergies were reviewed. The patient's tolerance of previous anesthesia was also reviewed. The risks and benefits of the procedure and the sedation options and risks were discussed with the patient. All questions were answered, and informed consent was obtained. Prior Anticoagulants: The patient has taken no anticoagulant or antiplatelet agents. After reviewing the risks and benefits, the patient was deemed in satisfactory condition to undergo the procedure. After I obtained informed consent, the scope was passed under direct vision. Throughout the procedure, the patient's blood pressure, pulse, and oxygen saturations were monitored continuously. The Colonoscope was introduced through the anus and advanced to the cecum, identified by appendiceal orifice and ileocecal valve. The colonoscopy was performed without difficulty. The patient tolerated the procedure well. The quality of the bowel preparation was good. The ileocecal valve, appendiceal orifice, and rectum were photographed. Scope In: 10:16:45 AM Scope Out: 10:31:18 AM Total Procedure Duration Time 0 hours 14 minutes 33 seconds Findings: The entire examined colon appeared normal on direct and retroflexion views. Worms were found in the rectum. This was biopsied with a cold forceps for histology. Impression: - The entire examined colon is normal on direct and retroflexion views. - Intestinal worms. Recommendation: - Discharge patient to home. - Resume previous diet. - Continue present medications. - Repeat colonoscopy in 10 years for screening purposes. Procedure Code(s): --- Professional --- 42228, Colonoscopy, flexible; with biopsy, single or multiple Diagnosis Code(s): --- Professional --- B82.0, Intestinal helminthiasis, unspecified K62.5, Hemorrhage of anus and rectum CPT copyright 2021 [employer]. All rights reserved. The codes documented in this report are preliminary and upon insurance claims examiner review may be revised to meet current compliance requirements. Lambert Tyler MD 05/13/2023 10:45:26 AM This report has been signed electronically. Number of Addenda: 0 Note Initiated On: 05/13/2023 10:11 AM
--- NOTE | 2023-05-13 10:46 | OP.CCLET_ITS ---
05/13/2023 [facility] Re : Colonoscopy procedure for Aleks Rizvi [facility] This procedure was performed on Saturday, May 13, 2023. My impressions and recommendations are as follows: Impressions : - The entire examined colon is normal on direct and retroflexion views. - Intestinal worms. Recommendations : - Discharge patient to home. - Resume previous diet. - Continue present medications. - Repeat colonoscopy in 10 years for screening purposes. My findings are described in the full procedure note, which is enclosed. If I can be of further assistance, please feel free to contact me at Doctor phone number(s): , Work: . Sincerely, Lambert Tyler MD 05/13/2023 10:45:26 AM This report has been signed electronically.
[2023-05-13 10:50] VITALS: BP 111/70; BP 151/94; PULSE 16; RESP 59; TEMP 36.7; O2SAT 99
[2023-05-13 11:12] VITALS: BP 151/94
== END 2023-05-13 11:28 | disposition home or self-care (01) ==
LOC: EN 08:56 → AC 08:57
PROVIDERS: Visit Provider Surgery
PROC: 0DJD8ZZ Inspection of Lower Intestinal Tract, Via Natural or Artificial Opening Endoscopic (ICD-10-PCS; CPT 45378; principal; 2023-05-13 10:10)
DX: Z12.11 Encounter for screening for malignant neoplasm of colon (principal); B80 Enterobiasis; K62.5 Hemorrhage of anus and rectum; K22.2 Esophageal obstruction; K21.9 Gastro-esophageal reflux disease without esophagitis; F17.210 Nicotine dependence, cigarettes, uncomplicated; R19.5 Other fecal abnormalities; B82.0 Intestinal helminthiasis, unspecified; Z79.899 Other long term (current) drug therapy
CPT/HCPCS: 45380; 43249; 88300; J7120; J2405

== ENCOUNTER → 2023-05-31 | Outpatient (CLI) | payer OTHER, SELFPAY ==
--- NOTE | 2023-05-31 07:42 | CT_ITS ---
STUDY: CT CHEST WITHOUT CONTRAST REASON FOR EXAM: Male, 57 years old. ABNORMAL CXR, PLEURITIC PAIN ATTN TO LEFT LUNG. Patient has a 41 pack year smoking history. RADIATION DOSAGE (If Supplied By Facility): CTDIvol = ( 19.02 ) mGy, DLP = ( 689.01 ) mGycm TECHNIQUE: Transaxial imaging was performed without the administration of intravenous contrast material. Multiplanar coronal and sagittal images were reformatted. Individualized dose optimization techniques were used for this CT. COMPARISON: No relevant priors. FINDINGS: CHEST Mild heterogeneous enlargement of the left lobe of the thyroid gland with a substernal extension. Minimal linear scarring at the left lung base. There is a 4.4 mm noncalcified nodule in the peripheral lateral aspect of the left lower lobe as seen on axial image #101. There is no demonstrated pleural abnormality. There are calcifications of the coronary arteries. There are small lymph nodes within the mediastinum, which are normal in size and morphology most compatible with reactive lymph hyperplasia. Normal hilar regions. Normal unenhanced pulmonary arteries. There is atherosclerotic calcification of the aortic arch. There are mild degenerative changes of the thoracic spine. There is no demonstrated abnormality of the visualized upper abdomen. CT/Chest without Contrast IMPRESSION: Mild scarring at the left lung base. 4.4 mm noncalcified nodule in the peripheral lateral aspect of the left lower lobe as seen on axial image #101. 12 month follow-up examination recommended. Electronically Signed: Jeremiah Pressley MD at 12:51 EDT ,
== END | disposition home or self-care (01) ==
LOC: CT 07:40
DX: R93.89 Abnormal findings on diagnostic imaging of other specified body structures (principal)
CPT/HCPCS: 71250

== ENCOUNTER → 2023-06-16 | Outpatient (CLI) | payer OTHER, SELFPAY ==
--- NOTE | 2023-06-16 07:46 | CT_ITS ---
EXAM: CT NECK WITH INTRAVENOUS CONTRAST CLINICAL INDICATION: Localized swelling, mass and lump, neck TECHNIQUE: Helically acquired images were obtained of the neck with intravenous contrast. This CT exam was performed using one or more of the following dose reduction techniques: automated exposure control, adjustment of the mA and/or kV according to patient size, and/or use of iterative reconstruction technique. CONTRAST: IV 75mL [id number]-370 COMPARISON: CT Neck dated 01/17/2023 FINDINGS: NASOPHARYNX: Normal. SUPRAHYOID NECK: Normal. Oropharynx, oral cavity, parapharyngeal space and retropharyngeal space are unremarkable. INFRAHYOID NECK: Normal. The larynx, hypopharynx and supraglottis are unremarkable. SUBMANDIBULAR/PAROTID GLANDS: Salivary glands are normal in size. THYROID: Left thyroid lobe again noted to be enlarged. Small left thyroid nodule previously seen obscured by streak artifacts from the adjacent high density contrast. SINUSES: Persistent complete opacification of the right maxillary sinus. Right ethmoid air cell opacification. 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 Surgical resection of the anterior portion of the left first rib. SOFT TISSUES: Normal. 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 LYMPH NODES: Stable small reactive level 2 and 3 cervical lymph nodes. LUNG APICES: Unremarkable as visualized. CT/Soft Tissue Neck WITH Contrast IMPRESSION: 1. No evidence of a neck mass. 2. Stable left thyromegaly. 3. Additional nonacute findings described above. Electronically Signed: eWi Hart MD at 8:45 EDT ,
== END | disposition home or self-care (01) ==
LOC: CT 07:45
DX: R22.1 Localized swelling, mass and lump, neck (principal)
CPT/HCPCS: 70491; Q9967